=== PATIENT | female | born 1985 | race Caucasian/White ===

== ENCOUNTER 2017-06-13 05:37 | Inpatient (IN) | payer BC ==
--- OUTSIDE RECORDS SUMMARY | 2017-06-13 05:39 | XMS | Clinical Summary ---
:1985 Author Organization [facility] Address [address] [place] [address] Phone Care Team Providers Name Role Phone , Primary Care Provider Unavailable Allergies Not on File Current Medications Not on file Active Problems Not on file Social History Tobacco Use Types Packs/Day Years Used Date Never Assessed Sex Assigned at Date Recorded Not on file Last Filed Vital Signs Not on file Plan of Treatment Not on file Results Not on filefrom Last 3 Months
[2017-06-13 06:06] VITALS: BMI 23.7
[2017-06-13 06:58] LABS: Hematocrit 35.1 % (36.0-47.0); Mean Platelet Volume 10.1 fL (7.4-10.4); Red Blood Cell (RBC) Count 3.83 mill/uL (4.20-5.40)
[2017-06-13] MEDS ORDERED: Bicitra 30 ML UDCUP ONE (07:03)
[2017-06-13] MEDS ORDERED: CEFAZOLIN/Water 2 GM/20 ML SYRINGE ONE (07:03)
[2017-06-13] MEDS ORDERED: Ondansetron HCl/PF 4 MG/2 ML Vial IVP PRN ×4 (07:08→09:19)
[2017-06-13] MEDS ORDERED: Lactated Ringer's 1,000 ML IV SCH (07:08)
[2017-06-13] MEDS ORDERED: Promethazine HCl 25 MG/ML VIAL IM PRN ×2 (07:08→08:59)
[2017-06-13] MEDS ORDERED: Bicitra 30 ML UDCUP PO SCH (07:15)
[2017-06-13] MEDS ORDERED: CEFAZOLIN/Water 2 GM/20 ML SYRINGE SLOW IVP SCH (07:15)
[2017-06-13] MEDS ORDERED: ePHEDrine/0.9% NaCl/PF SYRINGE 50 mg/10 ml ONE (07:24)
[2017-06-13] MEDS ORDERED: Ketorolac Tromethamine 30 MG/ML VIAL ONE (07:24)
[2017-06-13] MEDS ORDERED: EPINEPHrine 1 MG/ML AMP ONE (07:24)
[2017-06-13] MEDS ORDERED: Ondansetron HCl/PF 4 MG/2 ML Vial ONE (07:24)
[2017-06-13] MEDS ORDERED: Oxytocin 10 UNITS/ML VIAL ONE (07:24)
[2017-06-13] MEDS ORDERED: PHENYLEPHRINE-NS 100 MCG/ML 10 ML SYRINGE ONE (07:24)
[2017-06-13] MEDS ORDERED: Bupivacaine PF 0.5% 30 ML VIAL ONE (07:24)
[2017-06-13] MEDS ORDERED: Fentanyl 100 MCG/2 ML VIAL ONE (07:42)
[2017-06-13] MEDS ORDERED: Morphine PF 1 MG/ML SYR ONE ×2 (08:16→08:17)
[2017-06-13] MEDS ORDERED: Promethazine HCl 25 MG/ML VIAL SLOW IVP PRN (08:59)
[2017-06-13] MEDS ORDERED: HYDROmorphone 2 MG/ML VIAL SLOW IVP PRN (08:59)
[2017-06-13] MEDS ORDERED: Meperidine HCl/PF 25 MG/ML VIAL SLOW IVP PRN (08:59)
[2017-06-13] MEDS ORDERED: Ketorolac Tromethamine 30 MG/ML VIAL IVP SCH (09:00)
[2017-06-13] MEDS ORDERED: Meperidine HCl/PF 25 MG/ML VIAL IM PRN (09:19)
[2017-06-13] MEDS ORDERED: Lanolin Ointment 7 GM TUBE TOP PRN (09:19)
[2017-06-13] MEDS ORDERED: Acetaminophen/Codeine 30-300mg Tablet PO PRN (09:19)
[2017-06-13] MEDS ORDERED: Bisacodyl 10 MG SUPP PR PRN (09:19)
[2017-06-13] MEDS ORDERED: Zolpidem Tartrate 5 MG TAB PO PRN (09:19)
[2017-06-13] MEDS ORDERED: Adacel (T-DAP) 0.5 ML VIAL IM ONE (09:19)
[2017-06-13] MEDS ORDERED: Misoprostol 200 MCG TAB PR SCH (09:30)
[2017-06-13] MEDS ORDERED: LR w/ Pitocin 40 units/1000 ML BAG IV SCH (09:30)
[2017-06-13] MEDS: Ibuprofen 800 MG TAB PO SCH ×2 (12:55→21:37)
[2017-06-13] MEDS: Enoxaparin Sodium 30 MG/0.3 ML SYRINGE SC SCH (12:57)
[2017-06-13] MEDS: Ketorolac Tromethamine 30 MG/ML VIAL IVP SCH (18:10)
[2017-06-13] MEDS: Docusate (Surfak) 240 MG CAP PO SCH (21:30)
[2017-06-13] MEDS: Lactated Ringer's 1,000 ML IV SCH (21:33)
[2017-06-14] MEDS: Ketorolac Tromethamine 30 MG/ML VIAL IVP SCH ×2 (00:30→05:37)
[2017-06-14 05:22] LABS: Mean Platelet Volume 9.1 fL (7.4-10.4); Red Blood Cell (RBC) Count 3.04 mill/uL (4.20-5.40); White Blood Cell (WBC) Count 10.7 thou/uL (4.8-10.8)
[2017-06-14] MEDS: Lactated Ringer's 1,000 ML IV SCH (05:42)
[2017-06-14] MEDS: Ibuprofen 800 MG TAB PO SCH ×3 (05:43→21:18)
[2017-06-14] MEDS: Simethicone Chewable 80 MG TAB PO PRN ×2 (05:46→16:50)
[2017-06-14] MEDS: Prenatal Vitamin 1 TAB PO SCH (09:24)
[2017-06-14] MEDS: Docusate (Surfak) 240 MG CAP PO SCH ×2 (09:24→21:18)
[2017-06-14] MEDS ORDERED: Sodium Chloride 0.9% 0 ML ONE (13:23)
[2017-06-14] MEDS: Enoxaparin Sodium 30 MG/0.3 ML SYRINGE SC SCH (13:25)
[2017-06-14] MEDS: Acetaminophen/Codeine 30-300mg Tablet PO PRN (16:50)
[2017-06-15] MEDS: Ibuprofen 800 MG TAB PO SCH (05:52)
[2017-06-15] MEDS: Acetaminophen/Codeine 30-300mg Tablet PO PRN ×2 (07:42→12:09)
[2017-06-15] MEDS: Docusate (Surfak) 240 MG CAP PO SCH (07:43)
[2017-06-15] MEDS: Prenatal Vitamin 1 TAB PO SCH (07:43)
[2017-06-15 07:56] VITALS: BP 103/61; TEMP 97.7
--- NOTE | 2017-06-29 14:11 | OP ---
ATTENDING STAFF PHYSICIAN: Jairo Wong M.D. SURGEON: Jairo Wong M.D. APPLICATION TECHNICIAN SURGEON: Arti Gibbs M.D. PREOPERATIVE DIAGNOSES: 1. Term intrauterine at 38 and 2/7 weeks. 2. Prior section x2. 3. High-risk obstetrics with thrombophilia and Marfan syndrome. 4. Family history of ovarian cancer. POSTOPERATIVE DIAGNOSES: 1. Term intrauterine at 38 and 2/7 weeks. 2. Prior section x2. 3. High-risk obstetrics with thrombophilia and Marfan syndrome. 4. Family history of ovarian cancer. PROCEDURES: 1. Repeat low-transverse section. 2. Risk reduction, bilateral salpingectomy. ANESTHESIA: Spinal catheterization. FINDINGS: 1. Vigorous female , 7 pounds 10 ounces, Apgars 9 and 9. 2. Normal uterus, tubes, and ovaries. COMPLICATIONS: None. SPECIMENS REMOVED: 1. Cord blood. 2. Bilateral fallopian tubes. BLOOD LOSS: 500 mL PROCEDURE: After thorough consent and counseling, Mrs. Childress was taken to the operating room and adequate level of anesthesia was obtained via spinal catheterization. The patient was prepped and draped in the usual sterile fashion for abdominal surgery. A Magana was placed in the bladder, which was draining clear urine. DVT prophylaxis was placed. Attention was then turned to performing the outlined surgical procedure. A Pfannenstiel incision was made and carried sharply to the fascia, which was also sharply incised. The midline was identified and the rectus muscles were retracted laterally. The abdominal peritone al cavity was entered with usual safeguards carried out. A retractor was placed and a bladder flap was created on the vesicouterine peritoneum. A bladder blade was then placed. A low-transverse inc ision was made on the well-developed lower uterine segment. Upon entering the amniotic sac, copious amount of clear amniotic fluid was visualized. The was noted to be vertex presentation in t he occiput anterior position, still high in the pelvis. Head was delivered and baby was bulb suctio lavon on the abdomen. Nuchal cord x1 was reduced. The cord was doubly clamped, cut, and was h anded to pediatric team in attendance for the delivery. The infant was a vigorous viable female eladio ghing 7 pounds 10 ounces, Apgars of 9 and 9 obtained at 1 and 5 minutes respectively. Cord blood wa s obtained. The placenta was manually removed from the uterus. The uterus was exteriorized and goo d tone was noted. The uterine cavity was cleared of any remaining clot and fluid. The low-transver se incision was closed with a running locking ligature of #1 chromic. A second imbricating layer wa s placed to facilitate strength and hemostasis. The vesicouterine peritoneum was closed with a runn ing ligature of 3-0 Monocryl. Good tone and hemostasis was appreciated. Attention was then turned to performing the risk reduction salpingectomy, which was reviewed by the ethics committee and appro ethan. The patient has a history of ovarian cancer losing her aunt in her early 50s. In addition, th e patient is a high-risk OB with x3, thrombophilia (protein S deficiency), and Marfan synd erlin. She has been advised by Maternal- Medicine to proceed with no further childbearing. Con firmation intraoperatively was obtained to proceed with bilateral salpingectomy. The fallopian tube was grasped on the right, cross-clamped, ligated, and transected. The dissection was carried down through the mesosalpinx to the tubo-ovarian ligament and vessels. Once again, the distal end of the fallopian tube was cross-clamped, ligated, and transected. Good hemostasis was noted. The same pr ocedure was performed on the left. Both tubes were sent to pathology for confirmation. All surgica l sites were carefully inspected and noted to be hemostatic. The uterus was returned to the abdomen and good tone and hemostasis was appreciated. Lap, sponge, and needle counts were correct. The pe ritoneum was closed with an interrupted ligature of 2-0 Vicryl suture. The rectus muscles were reap proximated in the midline with interrupted ligatures of both 2-0 Vicryl and #1 chromic suture. A ca reful meticulous rectus muscle reapproximation was performed with multiple layers reducing the midli ne diastasis. The fascia was then closed with 2 ligatures of 0 Vicryl suture, which was tied in the midline. Good fascial integrity was appreciated. The incision was irrigated with copious amount o f warm normal saline. The subcutaneous tissue was closed with interrupted ligatures of 2-0 plain sykes ture. The skin was closed with a subcuticular stitch of 4-0 Monocryl. The incision was then carefu lly dressed with Dermabond. A pressure dressing and ice packs were subsequently placed. Lap, spong e, and needle counts correct x3. Estimated blood loss during the surgical procedure was approximate ly 500 mL. The patient was taken to recovery room in good condition. Immediately following surgery, the patien t and family were made aware of the surgical procedure and operative findings. Questions answered t o their satisfaction. Mother and baby were doing well postoperatively.
== END 2017-06-15 12:30 | disposition home or self-care (01) | DRG 766 ==
LOC: L&D 05:37 → 3SE 13:14
PROVIDERS: ADMIT Obstetrics & Gynecology; ATTEND Obstetrics & Gynecology
PROC: 10D00Z1 Extraction of Products of Conception, Low, Open Approach (ICD-10-PCS; principal; 2017-06-13)
PROC: 0UT70ZZ Resection of Bilateral Fallopian Tubes, Open Approach (ICD-10-PCS; 2017-06-13)
DX: O34.211 Maternal care for low transverse scar from previous cesarean delivery (principal); Z80.41 Family history of malignant neoplasm of ovary; Z37.0 Single live birth; Z3A.38 38 weeks gestation of pregnancy
CPT/HCPCS: 36415; 85027; 86780; 86850; 86900; 86901; 87340; 88302; A4216; J0171; J1650; J1885; J2274; J2405; J2590; J3010; S0020